=== PATIENT | female | born 1965 | race Caucasian/White ===

== ENCOUNTER → 2019-07-02 | Outpatient (CLI) | payer BC ==
[~2019-07-02] MED LIST: SCOP1PAT11 TD
--- NOTE | 2019-07-02 13:02 | Diagnostic Imaging Report ---
EXAM: Digital mammogram, bilateral screening. COMPARISON: This study was compared to the prior exam of 05/30/2016. There are no current complaints. The current study was also evaluated with a Computer Aided Detection (CAD) system. FINDINGS: The fibroglandular tissue in both breasts is heterogeneously dense. This does limit the sensitivity of this exam. Overall, there does not appear to have been any significant change when compared to the prior study. No primary or secondary sign of malignancy is noted. IMPRESSION: 1. There is no radiographic evidence for malignancy. 2. The patient should have her annual bilateral screening mammogram on schedule in June of 2020. ACR BI-RADS Category 1: Negative. Result letter will be mailed to the patient. Note: At least 10% of breast cancer is not imaged by mammography. Dictated by: Dictated on workstation # [id number]
== END ==
LOC: RAD 10:29
PROVIDERS: ATTEND Family Medicine
DX: Z12.31 Encounter for screening mammogram for malignant neoplasm of breast (principal)
CPT/HCPCS: 77067

== ENCOUNTER → 2019-07-14 | Outpatient (CLI) | payer BC ==
[2019-07-14 17:37] VITALS: BP 134/67
--- NOTE | 2019-07-14 17:37 | Cardiology Stress Test Report ---
Stress Test Report Date of Procedure/Referring: Date of Procedure: Jul 14, 2019 PCP Audra Carbajal MD Admitting Physician Delilah Woo DO Indications: Sinus node dysfunction Baseline Heart Rate: 48 Baseline Blood Pressure: Blood Pressure Systolic: 134 Blood Pressure Diastolic: 67 Baseline EKG: Baseline EKG: sinus bradycardia Summary/Conclusion: Summary: In summary, the patient started exercising with a baseline heart rate, blood pressure and EKG mentioned above Patient was able to exercise for a total of 9:45 minutes on Aldo protocol, METs Maximum heart rate 146 Maximum blood pressure 172/88 Stress EKG Minimal nondiagnostic changes, frequent PVCs, ventricular couplets and ventricular bigeminy Recovery EKG Return to baseline Conclusion: 1. Good exercise tolerance for a total of 9 minutes 45 seconds on Aldo protocol, achieving maximum heart rate of 146 bpm 2. Minimal nondiagnostic EKG changes with exercise, frequent PVCs and ventricular bigeminy and ventricular couplets during exercise returned to baseline during recovery 3. Hypertensive response to exercise AUDRA CARBAJAL MD Jul 14, 2019 17:37
== END ==
LOC: CARD 08:49
PROVIDERS: ATTEND Internal Medicine Cardiovascular Disease
DX: I49.5 Sick sinus syndrome (principal); I08.1 Rheumatic disorders of both mitral and tricuspid valves
CPT/HCPCS: 93017; 93306

== ENCOUNTER 2019-08-02 05:34 | Outpatient (CLI) | payer BC ==
[~2019-08-02] VITALS: Ht 152 cm; Wt 65.9 kg
== END 2019-08-02 10:42 | disposition home or self-care (01) ==
LOC: PREOP 05:34
PROVIDERS: ATTEND Surgery
DX: Z01.818 Encounter for other preprocedural examination (principal)

== ENCOUNTER 2019-08-09 07:28 | Day surgery (SDC) | payer BC ==
[2019-08-09] VITALS (7 sets, daily range): BP systolic 111–127; BP diastolic 58–72
[2019-08-09] MEDS ORDERED: LACTATED RINGERS 1,000 ML IV ONE (07:29)
[2019-08-09] MEDS ORDERED: PROPOFOL INJECTION 50 ML IV ONE ×2 (07:34→08:56)
[2019-08-09] MEDS ORDERED: MIDAZOLAM 2 MG/2 ML (VERSED) VIAL ONE (07:34)
[2019-08-09] MEDS ORDERED: GLYCOPYRROLATE 0.2 MG/ML (ROBINUL) 2 ML VIAL ONE (07:44)
[2019-08-09] MEDS ORDERED: LACTATED RINGERS 1,000 ML IV STA (07:59)
--- NOTE | 2019-08-09 09:40 | Progress Note-Post Operative ---
Post-Operative Progess Note Surgeon (s)/Neuropsychologist (s) Surgeon JOSEPH VALENZUELA DO Neuropsychologist: PAMELA Rutherford Pre-Operative Diagnosis Screening Post-Operative Diagnosis Diverticulosis Internal Hemorrhoids Procedure & Operative Findings Date of Procedure 08/09/19 Procedure Performed/Findings Colonoscopy Anesthesia Type IV sedation by EN[employer]ES CONSULTANT Estimated Blood Loss Estimated blood loss (mL): none Specimens/Packing Specimens Removed none JOSEPH VALENZUELA DO Aug 09, 2019 09:40
--- NOTE | 2019-08-09 09:41 | Endoscopy Discharge Instruct ---
Endo Procedure/Findings Findings 1.: Diverticulosis 2.: Internal Hemorrhoids Discharge Instructions - Activity: You might feel a little sleepy until tomorrow. This is due to the medicine you received to relax you. Until tomorrow, you should: NOT drive a car, operate machinery or power tools. NOT drink any alcoholic beverages. NOT make any important decisions or sign importortant papers. Do not return to work until tomorrow, unless otherwise instructed. Resume previous activities tomorrow. Diet: Start by taking liquids. If you tolerate liquids, advance to solid food. make an appointment for one week 1.: Colonscopy in 10 years Notify Physician - If you experience excessive bleeding, unusual abdominal pain, fever, or chest pain, contact your doctor immediately. JOSEPH VALENZUELA DO Aug 09, 2019 09:41
--- NOTE | 2019-08-09 13:32 | Anesthesia-General Post-Op ---
MAC Patient Condition Mental Status/LOC: Same as Preop Cardiovascular: Satisfactory Nausea/Vomiting: Absent Respiratory: Satisfactory Pain: Controlled Complications: Absent Post Op Complications Complications None Follow Up Care/Instructions Patient Instructions None needed. Anesthesiology Discharge Order Discharge Order Patient is doing well, no complaints, stable vital signs, no apparent adverse anesthesia problems. No complications reported per nursing. SOPHIA HAKWINS CRNA Aug 09, 2019 13:32
--- NOTE | 2019-08-09 18:38 | OPERATIVE REPORT ---
DATE OF SERVICE: 08/09/2019 PREOPERATIVE DIAGNOSIS: Screening colonoscopy. POSTOPERATIVE DIAGNOSES: Diverticula, internal hemorrhoids. PROCEDURE: Colonoscopy. SURGEON: Noah Lyons DO FAMILY NURSE: Calin Avila MS3 ANESTHESIA: IV sedation by the DIRECTOR OF TEENAGE ACTIVITIES. SPECIMEN: None. BLOOD LOSS: None. FLUIDS: Per anesthesia. POSTOPERATIVE CONDITION: Stable. INDICATION FOR PROCEDURE: The patient is a 54-year-old female who needed a screening colonoscopy. FINDINGS: The patient had some diverticula and some internal hemorrhoids, but no other obvious pathology. PROCEDURE NOTE: After informed consent was obtained, the patient was brought to the endoscopy suite, placed in bed in the left lateral decubitus position. She was administered IV sedation by the DIRECTOR OF TEENAGE ACTIVITIES who then monitored her vitals the entire time, heart rate, blood pressure and pulse ox and the scope was inserted, pushed all the way about 150 cm, able to get to the cecum, took a picture of appendiceal orifice, noted the ileocecal valve and then slowly withdrew the scope insufflating to look circumferentially at the beatty looking the cecum, up the ascending colon to the hepatic flexure, then down the transverse colon, the splenic flexure, into the descending colon down into the sigmoid and finally into the rectum, attempted to retroflex in the rectal vault, but could not do this. Then as I pulled slowly out I could see some internal hemorrhoids, took a picture and then removed the scope. The patient tolerated the procedure, recovered in endoscopy suite. Job ID: [id number] DocumentID: [id number] Dictated Date: 08/09/2019 15:56:20 Senior Quality Assurance Analyst Date: 08/09/2019 18:36:48 Dictated By: NOAH LYONS DO MTDD
== END 2019-08-09 10:06 | disposition home or self-care (01) ==
LOC: ENDO 07:28
PROVIDERS: ATTEND Surgery
DX: Z12.11 Encounter for screening for malignant neoplasm of colon (principal); K57.30 Diverticulosis of large intestine without perforation or abscess without bleeding; K64.8 Other hemorrhoids; Z82.49 Family history of ischemic heart disease and other diseases of the circulatory system; Z82.61 Family history of arthritis

== ENCOUNTER → 2020-07-04 | Outpatient (CLI) | payer BC ==
--- NOTE | 2020-07-04 14:02 | Diagnostic Imaging Report ---
Indication: Routine screening. Comparison is made with prior mammogram 07/02/2019 and 05/28/2016. 2-D and 3-D bilateral screening mammography was performed with CAD. Both breasts are heterogeneously dense, limiting the sensitivity of mammography. The parenchymal pattern is stable. No mass or malignant appearing microcalcifications are seen. Axillae are unremarkable. IMPRESSION: BI-RADS Category 2 No mammographic features suspicious for malignancy are identified. ACR BI-RADS Category 2: Benign findings. Result letter will be mailed to the patient. Note: At least 10% of breast cancer is not imaged by mammography. Dictated by: Dictated on workstation # [id number]
== END ==
LOC: RAD 10:52
PROVIDERS: ATTEND Family Medicine
DX: Z12.31 Encounter for screening mammogram for malignant neoplasm of breast (principal)
CPT/HCPCS: 77063; 77067

== ENCOUNTER → 2020-07-14 | Outpatient (CLI) | payer BC | LOC: CARD 13:30 | PROVIDERS: ATTEND Internal Medicine Cardiovascular Disease | DX: I49.5 Sick sinus syndrome (principal) | CPT/HCPCS: 93306 ==

== ENCOUNTER → 2021-07-05 | Outpatient (CLI) | payer BC ==
[~2021-07-05] MED LIST changes: +SCOP1PAT10 TD; -SCOP1PAT11 TD
--- NOTE | 2021-07-05 16:05 | Diagnostic Imaging Report ---
INDICATION: Routine screening. CORRELATION is made with prior mammograms 07/04/2020 and 07/02/2019. 2-D and 3-D bilateral screening mammography was performed with CAD. Both breasts are heterogeneously dense, limiting the sensitivity of mammography. The parenchymal pattern is stable. No mass or malignant-appearing microcalcifications are seen. Axillae are unremarkable. IMPRESSION: BI-RADS Category 1 No mammographic features suspicious for malignancy are identified. ACR BI-RADS Category 1: Negative. Result letter will be mailed to the patient. Note: At least 10% of breast cancer is not imaged by mammography. Dictated by: Dictated on workstation # [id number]
== END ==
LOC: RAD 14:45
PROVIDERS: ATTEND Family Medicine
DX: Z12.31 Encounter for screening mammogram for malignant neoplasm of breast (principal)
CPT/HCPCS: 77063; 77067

== ENCOUNTER → 2021-10-12 | Outpatient (CLI) | payer BC | LOC: CARD 08:23 | PROVIDERS: ATTEND Physician Assistant | DX: I34.0 Nonrheumatic mitral (valve) insufficiency (principal); I31.3 Pericardial effusion (noninflammatory); I49.8 Other specified cardiac arrhythmias; I25.10 Atherosclerotic heart disease of native coronary artery without angina pectoris; I10 Essential (primary) hypertension; E78.2 Mixed hyperlipidemia | CPT/HCPCS: 93225; 93226; 93306 ==

== ENCOUNTER → 2021-10-12 | Outpatient (CLI) | payer BC ==
[2021-10-12 08:53] LABS: POTASSIUM 4.2 MMOL/L (3.6-5.0)
[2021-10-12 08:54] LABS: CALCIUM 9.1 MG/DL (8.5-10.1)
[2021-10-12 08:56] LABS: TOTAL PROTEIN 6.8 GM/DL (6.4-8.2)
[2021-10-12 08:58] LABS: BILIRUBIN,TOTAL 0.6 MG/DL (0.1-1.0)
== END ==
LOC: LAB 08:28
PROVIDERS: ATTEND Physician Assistant
DX: I49.8 Other specified cardiac arrhythmias (principal); I10 Essential (primary) hypertension; I49.9 Cardiac arrhythmia, unspecified; E78.2 Mixed hyperlipidemia; R07.9 Chest pain, unspecified
CPT/HCPCS: 36415; 80053; 80061; 84443

== ENCOUNTER → 2021-11-21 | Outpatient (CLI) | payer BC ==
[2021-11-21 14:29] VITALS: BP 123/59
--- NOTE | 2021-11-26 11:40 | Cardiology Stress Test Report ---
Stress Test Report Date of Procedure/Referring: Date of Procedure: Nov 21, 2021 PCP Delilah Woo DO Admitting Physician Admitting Physician: Attending Physician: Charo Campbell Indications: CP Baseline Heart Rate: 59 Baseline Blood Pressure: Blood Pressure Systolic: 123 Blood Pressure Diastolic: 59 Baseline EKG: Baseline EKG: NSR Summary/Conclusion: Summary: In summary, the patient started exercising with a baseline heart rate, blood pressure and EKG mentioned above Patient was able to exercise for a total of 9 minutes on Aldo protocol, METs 10.5 Maximum heart rate 132 Maximum blood pressure 170/61 Stress EKG, Minimal nondiagnostic changes Recovery EKG , Return to baseline Conclusion: 1. Good exercise tolerance for a total of 9 minutes on Aldo protocol, 10.5 METs, achieving 80 percent of maximum expected heart rate 2. Minimal nondiagnostic EKG changes with exercise returned to baseline during recovery 3. Frequent PVCs and ventricular bigeminy noted during exercise and persisted in recovery. Copy Copies To 1: DELILAH WOO BASHAR J MD Nov 26, 2021 11:40
== END ==
LOC: CARD 11:00
PROVIDERS: ATTEND Physician Assistant
DX: R07.9 Chest pain, unspecified (principal)
CPT/HCPCS: 93017

== ENCOUNTER → 2022-07-12 | Outpatient (CLI) | payer BC ==
--- NOTE | 2022-07-15 08:51 | Diagnostic Imaging Report ---
INDICATION: Routine screening. Comparison is made with prior mammogram from 07/05/2021 and 07/04/2020. 2-D and 3-D bilateral screening mammography was performed with CAD. Both breasts are heterogeneously dense, limiting the sensitivity of mammography. The parenchymal pattern is stable. No mass or malignant-appearing microcalcifications are seen. Axillae are unremarkable. IMPRESSION: No mammographic features suspicious for malignancy are identified. ACR BI-RADS Category 1: Negative. Result letter will be mailed to the patient. Note: At least 10% of breast cancer is not imaged by mammography. BI-RADS Category 1 Dictated by: Dictated on workstation # [id number]
== END ==
LOC: RAD 14:51
PROVIDERS: ATTEND Family Medicine
DX: Z12.31 Encounter for screening mammogram for malignant neoplasm of breast (principal)
CPT/HCPCS: 77063; 77067